=== PATIENT | female | born 1960 | race Two or more races ===

== ENCOUNTER 2018-02-04 20:02 | Emergency (ER) | payer OTHER ==
[~2018-02-04] VITALS: Ht 167.6 cm; Wt 63.5 kg
[~2018-02-04 20:02] MED LIST: ATIVAN2 M1; DICLOFENAC POTA50 MG PO; KETO10TA2 PO; LIMBREL 500 MG500 MG PO; MEDROLPACK PO; NORFLEX100MG PO; PROZAC10 M1; SULFAMETHOXAZOL1 TA1 PO; TAMS0.4C PO
== END 2018-02-04 21:39 | disposition home or self-care (01) ==
LOC: ER 20:02
DX: R13.19 Other dysphagia (principal); T78.1XXA Other adverse food reactions, not elsewhere classified, initial encounter; X58.XXXA Exposure to other specified factors, initial encounter

== ENCOUNTER 2018-04-15 07:12 | Outpatient (CLI) | payer OTHER | END 2018-04-15 07:29 | disposition home or self-care (01) | LOC: SONOGRAMA 07:12 → MAMO-SONO 09:45 | DX: M65.811 Other synovitis and tenosynovitis, right shoulder (principal); M65.812 Other synovitis and tenosynovitis, left shoulder ==

== ENCOUNTER 2018-07-17 14:50 | Outpatient (CLI) | payer OTHER | END 2018-07-17 16:08 | disposition home or self-care (01) | LOC: RAD 14:50 | DX: I10 Essential (primary) hypertension (principal) ==

== ENCOUNTER → 2018-07-23 11:59 | Outpatient (CLI) | payer OTHER | END | disposition home or self-care (01) | LOC: EKG 11:59 | DX: I10 Essential (primary) hypertension (principal) ==

== ENCOUNTER 2018-07-23 12:16 | Outpatient (CLI) | payer OTHER | END 2018-07-23 12:24 | disposition home or self-care (01) | LOC: RAD 12:16 | DX: M75.121 Complete rotator cuff tear or rupture of right shoulder, not specified as traumatic (principal) ==

== ENCOUNTER 2018-08-08 06:30 | Day surgery (SDC) | payer OTHER ==
[~2018-08-08 06:30] MED LIST changes: +DEPLIN-ALGAL O1 EAC1 PO
== END 2018-08-08 14:00 | disposition home or self-care (01) ==
LOC: CIR.AMB 06:30
DX: M75.41 Impingement syndrome of right shoulder (principal); M13.811 Other specified arthritis, right shoulder; M75.51 Bursitis of right shoulder

== ENCOUNTER → 2018-11-13 | Outpatient (CLI) | payer OTHER | END | disposition home or self-care (01) | LOC: NUCLEAR 08:52 | DX: M89.9 Disorder of bone, unspecified (principal) | CPT/HCPCS: 78306; A9503 ==

== ENCOUNTER 2018-12-20 14:07 | Outpatient (CLI) | payer OTHER | END 2018-12-20 14:09 | disposition home or self-care (01) | LOC: SONOGRAMA 14:07 | DX: E04.1 Nontoxic single thyroid nodule (principal) ==

== ENCOUNTER 2019-12-10 13:16 | Outpatient (CLI) | payer OTHER | END 2019-12-10 13:48 | disposition home or self-care (01) | LOC: RAD 13:16 | DX: Z12.31 Encounter for screening mammogram for malignant neoplasm of breast (principal); Z87.898 Personal history of other specified conditions; E04.1 Nontoxic single thyroid nodule; M25.562 Pain in left knee ==

== ENCOUNTER 2019-12-10 15:15 | Outpatient (CLI) | payer OTHER | END 2019-12-10 16:00 | disposition home or self-care (01) | LOC: NUCLEAR 15:15 | DX: I87.2 Venous insufficiency (chronic) (peripheral) (principal); I73.9 Peripheral vascular disease, unspecified ==

== ENCOUNTER 2019-12-11 09:15 | Outpatient (CLI) | payer OTHER | END 2019-12-11 10:00 | disposition home or self-care (01) | LOC: NUCLEAR 09:15 | DX: I87.2 Venous insufficiency (chronic) (peripheral) (principal) ==

== ENCOUNTER 2020-11-04 07:50 | Outpatient (CLI) | payer OTHER | END 2020-11-04 07:59 | disposition HB | LOC: RAD 07:50 | PROVIDERS: ATTEND Physical Medicine & Rehabilitation | DX: M51.37 Other intervertebral disc degeneration, lumbosacral region (principal); M77.01 Medial epicondylitis, right elbow; M77.02 Medial epicondylitis, left elbow; M54.5 Low back pain ==

== ENCOUNTER 2020-12-24 | Outpatient (CLI) | payer OTHER | END 2020-12-24 06:50 | disposition home or self-care (01) | LOC: PPH VACUNA → EDBD → PPH VACUNA 06:50 | PROVIDERS: ATTEND Emergency Medicine Pediatric Emergency Medicine | DX: Z23 Encounter for immunization (principal) ==

== ENCOUNTER 2021-01-13 08:56 | Outpatient (CLI) | payer OTHER | END 2021-01-13 08:59 | disposition home or self-care (01) | LOC: PPH VACUNA 08:56 | PROVIDERS: ATTEND Emergency Medicine Pediatric Emergency Medicine | DX: Z23 Encounter for immunization (principal) ==

== ENCOUNTER → 2021-04-05 08:44 | Outpatient (CLI) | payer OTHER ==
[~2021-04-05 08:44] MED LIST changes: +BUTALB-ACETAMI1 EACH PO; +CARAFATE1 GM; +CARBATROL200 MG PO; +MAXALT10 MG PO; +METHOCARBAMOL500 MG PO; +RIZATRIPTAN10 MG PO; +ULTRAM50 MG PO
== END | disposition home or self-care (01) ==
LOC: LAB 07:39 → EDBD 08:44
PROVIDERS: ATTEND Internal Medicine Hematology & Oncology
DX: M34.0 Progressive systemic sclerosis (principal); E78.2 Mixed hyperlipidemia; F41.1 Generalized anxiety disorder; D51.3 Other dietary vitamin B12 deficiency anemia; D51.1 Vitamin B12 deficiency anemia due to selective vitamin B12 malabsorption with proteinuria; E03.8 Other specified hypothyroidism

== ENCOUNTER 2021-04-05 09:17 | Outpatient (CLI) | payer OTHER ==
[~2021-04-05 09:17] MED LIST changes: -BUTALB-ACETAMI1 EACH PO; -CARAFATE1 GM; -CARBATROL200 MG PO; -MAXALT10 MG PO; -METHOCARBAMOL500 MG PO; -RIZATRIPTAN10 MG PO; -ULTRAM50 MG PO
[2021-07-03] MEDS ORDERED: METHOCARBAMOL500 MG PO (08:17)
[2021-07-03] MEDS ORDERED: CARBATROL200 MG PO (08:17)
[2021-07-03] MEDS ORDERED: RIZATRIPTAN10 MG PO (08:18)
== END 2021-04-05 09:20 | disposition home or self-care (01) ==
LOC: MAMO-SONO 09:17
PROVIDERS: ATTEND Internal Medicine Hematology & Oncology
DX: M34.0 Progressive systemic sclerosis (principal); D51.3 Other dietary vitamin B12 deficiency anemia; D51.1 Vitamin B12 deficiency anemia due to selective vitamin B12 malabsorption with proteinuria; E04.2 Nontoxic multinodular goiter; Z12.13 Encounter for screening for malignant neoplasm of small intestine

== ENCOUNTER 2021-06-02 08:00 | Outpatient (CLI) | payer OTHER ==
[2021-07-03] MEDS ORDERED: CARBATROL200 MG PO (08:17)
[2021-07-03] MEDS ORDERED: METHOCARBAMOL500 MG PO (08:17)
[2021-07-03] MEDS ORDERED: RIZATRIPTAN10 MG PO (08:18)
== END 2021-06-02 08:30 | disposition home or self-care (01) ==
LOC: PPH VACUNA 08:00
DX: Z23 Encounter for immunization (principal)

== ENCOUNTER 2021-06-07 18:13 | Emergency (ER) | payer OTHER ==
[~2021-06-07] VITALS: Ht 162.6 cm; Wt 71.7 kg
[2021-06-07] MEDS ORDERED: BUTALB-ACETAMI1 EACH PO (20:49)
[2021-07-03] MEDS ORDERED: CARBATROL200 MG PO (08:17)
[2021-07-03] MEDS ORDERED: METHOCARBAMOL500 MG PO (08:17)
[2021-07-03] MEDS ORDERED: RIZATRIPTAN10 MG PO (08:18)
== END 2021-06-07 20:52 | disposition home or self-care (01) ==
LOC: ER 18:13
DX: R51.9 Headache, unspecified (principal); T50.B95A Adverse effect of other viral vaccines, initial encounter

== ENCOUNTER 2021-06-28 10:51 | Emergency (ER) | payer OTHER ==
[~2021-06-28] VITALS: Ht 167.6 cm; Wt 59.9 kg
[~2021-06-28 10:51] MED LIST changes: +BUTALB-ACETAMI1 EACH PO
[2021-06-28] MEDS ORDERED: CARAFATE1 GM (11:49)
[2021-06-28] MEDS ORDERED: MAXALT10 MG PO (17:02)
[2021-06-28] MEDS ORDERED: ULTRAM50 MG PO (17:02)
[2021-07-03] MEDS ORDERED: CARBATROL200 MG PO (08:17)
[2021-07-03] MEDS ORDERED: METHOCARBAMOL500 MG PO (08:17)
[2021-07-03] MEDS ORDERED: RIZATRIPTAN10 MG PO (08:18)
== END 2021-06-28 17:56 ==
LOC: ER 10:51
DX: R51.9 Headache, unspecified (principal); Z20.822 Contact with and (suspected) exposure to COVID-19

== ENCOUNTER → 2021-07-03 | Emergency (ER) | payer OTHER ==
[~2021-07-03] VITALS: Ht 167.6 cm; Wt 59.9 kg
[~2021-07-03] MED LIST changes: +CARAFATE1 GM; +CARBATROL200 MG PO; +MAXALT10 MG PO; +METHOCARBAMOL500 MG PO; +RIZATRIPTAN10 MG PO; +ULTRAM50 MG PO
== END | disposition left against medical advice (07) ==
LOC: ER 08:00
DX: G50.0 Trigeminal neuralgia (principal)

== ENCOUNTER 2021-12-20 08:12 | Outpatient (CLI) | payer OTHER | END 2021-12-20 08:19 | disposition home or self-care (01) | LOC: RAD 08:12 | PROVIDERS: ATTEND General Practice | DX: R10.84 Generalized abdominal pain (principal); R07.89 Other chest pain ==

== ENCOUNTER 2021-12-28 06:59 | Outpatient (CLI) | payer OTHER | END 2021-12-28 07:24 | disposition home or self-care (01) | LOC: LAB 06:59 | PROVIDERS: ATTEND Internal Medicine Hematology & Oncology | DX: D50.8 Other iron deficiency anemias (principal); R79.9 Abnormal finding of blood chemistry, unspecified; I10 Essential (primary) hypertension; R74.02 Elevation of levels of lactic acid dehydrogenase [LDH]; K76.89 Other specified diseases of liver; D51.8 Other vitamin B12 deficiency anemias; E55.9 Vitamin D deficiency, unspecified; R97.0 Elevated carcinoembryonic antigen [CEA]; R97.8 Other abnormal tumor markers; D51.1 Vitamin B12 deficiency anemia due to selective vitamin B12 malabsorption with proteinuria; M34.0 Progressive systemic sclerosis; E78.2 Mixed hyperlipidemia; F41.1 Generalized anxiety disorder; D51.3 Other dietary vitamin B12 deficiency anemia ==

== ENCOUNTER 2022-01-03 07:35 | Outpatient (CLI) | payer OTHER | END 2022-01-03 07:41 | disposition home or self-care (01) | LOC: RAD 07:35 | PROVIDERS: ATTEND Orthopaedic Surgery Orthopaedic Surgery of the Spine | DX: M54.50 Low back pain, unspecified (principal) ==

== ENCOUNTER 2022-02-20 14:51 | Emergency (ER) | payer OTHER ==
[~2022-02-20] VITALS: Ht 165.1 cm; Wt 65.3 kg
[2022-02-20] MEDS ORDERED: DICLOFENAC SODI75 MG PO (17:03)
== END 2022-02-20 17:07 | disposition home or self-care (01) ==
LOC: ER 14:51
DX: S20.20XA Contusion of thorax, unspecified, initial encounter (principal); W18.39XA Other fall on same level, initial encounter; Y93.9 Activity, unspecified; Y92.018 Other place in single-family (private) house as the place of occurrence of the external cause; Y99.9 Unspecified external cause status; E03.9 Hypothyroidism, unspecified; Z91.041 Radiographic dye allergy status; Z88.2 Allergy status to sulfonamides; Z88.6 Allergy status to analgesic agent

== ENCOUNTER 2022-04-03 06:32 | Outpatient (CLI) | payer OTHER ==
[~2022-04-03 06:32] MED LIST changes: +DICLOFENAC SODI75 MG PO
== END 2022-04-03 06:33 | disposition home or self-care (01) ==
LOC: LAB 06:32
PROVIDERS: ATTEND Internal Medicine Hematology & Oncology
DX: D50.8 Other iron deficiency anemias (principal); R79.9 Abnormal finding of blood chemistry, unspecified; I10 Essential (primary) hypertension; R74.02 Elevation of levels of lactic acid dehydrogenase [LDH]; K76.89 Other specified diseases of liver; D51.8 Other vitamin B12 deficiency anemias; E55.9 Vitamin D deficiency, unspecified; D51.1 Vitamin B12 deficiency anemia due to selective vitamin B12 malabsorption with proteinuria; D63.1 Anemia in chronic kidney disease; E03.8 Other specified hypothyroidism; E06.3 Autoimmune thyroiditis; R97.0 Elevated carcinoembryonic antigen [CEA]; R97.8 Other abnormal tumor markers; M34.0 Progressive systemic sclerosis; E78.2 Mixed hyperlipidemia; F41.1 Generalized anxiety disorder; D51.3 Other dietary vitamin B12 deficiency anemia

== ENCOUNTER 2022-04-03 07:15 | Outpatient (CLI) | payer OTHER | END 2022-04-03 07:24 | disposition home or self-care (01) | LOC: SONOGRAMA 07:15 | PROVIDERS: ATTEND Internal Medicine Gastroenterology | DX: R10.9 Unspecified abdominal pain (principal) ==

== ENCOUNTER 2022-04-14 09:04 | Outpatient (CLI) | payer OTHER | END 2022-04-14 09:20 | disposition home or self-care (01) | LOC: PPH VACUNA 09:04 | PROVIDERS: ATTEND Emergency Medicine Pediatric Emergency Medicine | DX: Z23 Encounter for immunization (principal) ==

== ENCOUNTER 2022-04-20 07:33 | Outpatient (CLI) | payer OTHER | END 2022-04-20 07:34 | disposition home or self-care (01) | LOC: MAMO-SONO 07:33 | PROVIDERS: ATTEND Student in an Organized Health Care Education/Training Program | DX: N60.11 Diffuse cystic mastopathy of right breast (principal); N60.12 Diffuse cystic mastopathy of left breast ==

== ENCOUNTER 2023-04-11 09:56 | Outpatient (CLI) | payer OTHER | END 2023-04-11 09:58 | disposition home or self-care (01) | LOC: RX STUDY 09:56 | PROVIDERS: ATTEND Internal Medicine Gastroenterology | DX: R13.10 Dysphagia, unspecified (principal) ==

== ENCOUNTER 2023-04-23 07:07 | Outpatient (CLI) | payer OTHER | END 2023-04-23 07:21 | disposition home or self-care (01) | LOC: MAMO-SONO 07:07 | PROVIDERS: ATTEND General Practice | DX: Z12.31 Encounter for screening mammogram for malignant neoplasm of breast (principal); N64.4 Mastodynia ==

== ENCOUNTER 2023-04-23 11:36 | Outpatient (CLI) | payer OTHER | END 2023-04-23 11:38 | disposition home or self-care (01) | LOC: NUCLEAR 11:36 | PROVIDERS: ATTEND General Practice | DX: Z13.820 Encounter for screening for osteoporosis (principal) ==

== ENCOUNTER 2023-07-27 07:54 | Outpatient (CLI) | payer OTHER | END 2023-07-27 08:03 | disposition home or self-care (01) | LOC: TOM 07:54 | PROVIDERS: ATTEND General Practice | DX: I71.21 Aneurysm of the ascending aorta, without rupture (principal); Z88.2 Allergy status to sulfonamides; Z88.6 Allergy status to analgesic agent; Z91.041 Radiographic dye allergy status | CPT/HCPCS: 71260; Q9965 ==

== ENCOUNTER 2023-08-03 07:07 | Outpatient (CLI) | payer OTHER | END 2023-08-03 07:14 | disposition home or self-care (01) | LOC: MRI 07:07 | DX: R57.9 Shock, unspecified (principal); Z88.2 Allergy status to sulfonamides; Z88.6 Allergy status to analgesic agent; Z91.041 Radiographic dye allergy status | CPT/HCPCS: 70552; Q9965 ==

== ENCOUNTER → 2024-06-17 | Outpatient (CLI) | payer OTHER | END | disposition home or self-care (01) | LOC: RAD 06-11 09:00 | PROVIDERS: ATTEND General Practice | DX: R10.2 Pelvic and perineal pain (principal); R10.84 Generalized abdominal pain; Z12.31 Encounter for screening mammogram for malignant neoplasm of breast; N64.4 Mastodynia; R07.9 Chest pain, unspecified; M54.2 Cervicalgia ==

== ENCOUNTER 2025-04-10 10:34 | Outpatient (CLI) | payer OTHER | END 2025-04-10 10:43 | disposition home or self-care (01) | LOC: MRI 10:34 | PROVIDERS: ATTEND General Practice | DX: I67.9 Cerebrovascular disease, unspecified (principal) | CPT/HCPCS: 70553; Q9965 ==

== ENCOUNTER 2025-10-12 08:28 | Outpatient (CLI) | payer OTHER | END 2025-10-12 08:32 | disposition home or self-care (01) | LOC: TOM 08:28 | DX: I71.21 Aneurysm of the ascending aorta, without rupture (principal) | CPT/HCPCS: 71270; 74170; Q9965 ==